=== PATIENT | female | born 1970 | race Caucasian/White ===

== ENCOUNTER 2023-06-23 09:38 | Outpatient (CLI) | payer OTHER | END 2023-06-23 09:42 | disposition home or self-care (01) | LOC: NUCLEAR 09:38 | PROVIDERS: ATTEND Specialist | DX: R55 Syncope and collapse (principal) ==

== ENCOUNTER 2023-06-29 09:43 | Outpatient (CLI) | payer OTHER | END 2023-06-29 09:53 | disposition home or self-care (01) | LOC: NUCLEAR 09:43 | PROVIDERS: ATTEND Internal Medicine Cardiovascular Disease | DX: I73.9 Peripheral vascular disease, unspecified (principal); M79.609 Pain in unspecified limb ==